=== PATIENT | female | born 2000 | race Hispanic/Latino ===

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

== ENCOUNTER 2024-03-19 21:35 | Emergency (ER) | payer MEDICAID, OTHER ==
[~2024-03-19] VITALS: Ht 160 cm; Wt 116.6 kg
[~2024-03-19 21:35] MED LIST: CEPH500B PO
[2024-03-20] MEDS: PROCHLORPERAZINE 10MG/2ML INJ IV ONE (00:04)
[2024-03-20] MEDS: KETOROLAC 15MG/ML VIAL (15MG/ML) IV ONE (00:04)
[2024-03-20] MEDS: DiphenhydrAMINE HCL 50 MG/ML VIAL IV ONE (00:04)
[2024-03-20 01:13] VITALS: BP 124/57; PULSE 71; RESP 18; O2SAT 97
== END 2024-03-20 01:17 | disposition home or self-care (01) ==
LOC: EDH 21:35
DX: R51.9 Headache, unspecified (principal); M54.2 Cervicalgia; E66.01 Morbid (severe) obesity due to excess calories; Z79.2 Long term (current) use of antibiotics; Z68.30 Body mass index [BMI] 30.0-30.9, adult; V89.2XXA Person injured in unspecified motor-vehicle accident, traffic, initial encounter; Y93.I9 Activity, other involving external motion; Y92.488 Other paved roadways as the place of occurrence of the external cause; Y99.8 Other external cause status
CPT/HCPCS: 99285; 70450; 84703; 36415; 72125; 74176; 96374; 96375; J1200; J0780; J1885